=== PATIENT | female | born 1945 | race Hispanic/Latino ===

== ENCOUNTER 2017-01-05 19:45 | Emergency (ER) | payer MEDICARE ==
[2017-01-05 20:39] LABS: ALT (SGPT) 24 U/L (8-55); AST (SGOT) 25 U/L (5-34); Albumin 3.6 g/dL (3.4-4.8); Alkaline Phosphatase 69 U/L (40-150); Anion Gap 15 mmol/L (10-20); BUN (Urea Nitrogen) 19 mg/dL (9.8-20.1); CK (CPK) 112 U/L (29-168); Calc. Creatinine Clearance 0 mL/min (70-130); Carbon Dioxide 22 mmol/L (23-31); Chloride 102 mmol/L (98-107); Estimated GFR-MDRD 52; Globulin 3.8 g/dL (2.4-3.5); Glucose 215 mg/dL (80-115); Potassium 3.9 mmol/L (3.5-5.1); Protein, Total 7.4 g/dL (6.0-8.3); Sodium 135 mmol/L (136-145)
--- NOTE | 2017-01-05 21:03 | RAD ---
THREE VIEWS LEFT WRIST 01/05/17 HISTORY: Fall with injury last night to left wrist. AP, lateral and oblique views left wrist is obtained. Images demonstrate an area of radiolucency in the distal articulating surface of the distal left rad ius. The lucency is compatible with a fracture extends into the radiocarpal joint. Some osteoarthritic changes seen in the articulation of the trapezium and first metacarpal. The scaphoid appears to be intact without evidence of acute abnormalities. IMPRESSION: Intra-articular distal radial fracture. POS: [facility]
--- NOTE | 2017-01-05 21:04 | RAD ---
TWO VIEWS OF THE LEFT HIP 01/05/17 HISTORY: Fall last night with left hip pain. AP and frogleg views left hip is obtained. No evidence of left hip fractures, subluxations or bony lesions seen. IMPRESSION: Normal two views left hip. POS: [facility]
[2017-01-05] MEDS ORDERED: Acetaminophen/Codeine 30-300mg Tablet ONE (21:17)
[2017-01-05] MEDS ORDERED: Bacitracin Zinc 1 Packet ONE (21:18)
== END 2017-01-05 21:30 | disposition home or self-care (01) ==
LOC: NAV ERS 19:45
DX: S52.532A Colles' fracture of left radius, initial encounter for closed fracture (principal); S91.011A Laceration without foreign body, right ankle, initial encounter; E03.9 Hypothyroidism, unspecified; I25.2 Old myocardial infarction; I11.0 Hypertensive heart disease with heart failure; I50.9 Heart failure, unspecified; E78.5 Hyperlipidemia, unspecified; Z87.442 Personal history of urinary calculi; F41.9 Anxiety disorder, unspecified; F32.9 Major depressive disorder, single episode, unspecified; Z79.899 Other long term (current) drug therapy; W01.0XXA Fall on same level from slipping, tripping and stumbling without subsequent striking against object, initial encounter
CPT/HCPCS: 29125; 36415; 80053; 82550

== ENCOUNTER 2018-02-06 13:33 | Emergency (ER) | payer MEDICARE ==
[2018-02-06] MEDS ORDERED: Furosemide 40 MG/4 ML VIAL ONE (14:37)
[2018-02-06] MEDS ORDERED: hydrALAZINE 20 MG/ML VIAL ONE (14:37)
[2018-02-06 15:16] LABS: #Basophils 0.1 thou/uL (0.0-0.2); #Eosinphils 0.2 thou/uL (0.0-0.7); #Lymphocytes 2.7 thou/uL (1.20-3.40); #Monocytes 0.7 thou/uL (0.11-0.59); #Neutrophils 3.6 thou/uL (1.40-6.50); %Basophils 1.4 % (0.0-1.0); %Eosinophils 2.4 % (0.0-10.0); %Lymphocytes 37.1 % (21.0-51.0); %Monocytes 9.9 % (0.0-10.0); %Neutrophils 49.2 % (42.0-75.0); Hemoglobin 12.2 g/dL (12.0-16.0); Mean Corpuscular HGB CONC 31.9 g/dL (32.0-36.0); Mean Corpuscular Hemoglobin 29.4 pg (27.0-31.0); Mean Corpuscular Volume 92.1 fL (78.0-98.0); Mean Platelet Volume 6.5 fL (7.4-10.4); Platelet Count 311 thou/uL (130-400); RBC Distribution Width 12.3 % (11.5-14.5); Red Blood Cell (RBC) Count 4.14 mill/uL (4.20-5.40); White Blood Cell (WBC) Count 7.2 thou/uL (4.8-10.8)
[2018-02-06 15:33] LABS: ALT (SGPT) 31 U/L (8-55); AST (SGOT) 37 U/L (5-34); Albumin 3.6 g/dL (3.4-4.8); Alkaline Phosphatase 72 U/L (40-150); Anion Gap 15 mmol/L (10-20); BUN (Urea Nitrogen) 10 mg/dL (9.8-20.1); Bilirubin, Total 0.6 mg/dL (0.2-1.2); CK (CPK) 29 U/L (29-168); Calc. Creatinine Clearance 0 mL/min (70-130); Calcium 9.4 mg/dL (7.8-10.44); Carbon Dioxide 23 mmol/L (23-31); Chloride 102 mmol/L (98-107); Estimated GFR-MDRD 69; Globulin 3.8 g/dL (2.4-3.5); Glucose 217 mg/dL (83-110); Potassium 3.6 mmol/L (3.5-5.1); Protein, Total 7.4 g/dL (6.0-8.3); Sodium 136 mmol/L (136-145)
[2018-02-06 15:35] LABS: CKMB 0.9 ng/mL (0-6.6); Troponin I Less than 0.010 ng/mL (< 0.028)
[2018-02-06] MEDS ORDERED: cloNIDine 0.2 MG TAB ONE (15:48)
[2018-02-06] MEDS ORDERED: Ondansetron HCl/PF 4 MG/2 ML Vial ONE (15:55)
[2018-02-06] MEDS ORDERED: Acetaminophen 500 MG TAB ONE (15:55)
== END 2018-02-06 18:50 | disposition home or self-care (01) ==
LOC: NAV ERS 13:33
DX: I11.0 Hypertensive heart disease with heart failure (principal); I50.9 Heart failure, unspecified; R51 Headache; E03.9 Hypothyroidism, unspecified; I25.2 Old myocardial infarction; J44.9 Chronic obstructive pulmonary disease, unspecified; F41.9 Anxiety disorder, unspecified; F32.9 Major depressive disorder, single episode, unspecified; Z79.899 Other long term (current) drug therapy
CPT/HCPCS: 80053; 82553; 84484; 85025; 93005; 96361; 96374; 96375; J0360; J1940; J2405

== ENCOUNTER 2018-04-04 12:39 | Emergency (ER) | payer MEDICARE ==
[2018-04-04] MEDS ORDERED: Ondansetron PF 4 MG/2 ML Vial ONE (13:06)
[2018-04-04] MEDS ORDERED: Nitroglycerin 2% Ointment 1 INCH/1 GM Packet ONE (13:06)
[2018-04-04 14:00] LABS: #Basophils 0.1 thou/uL (0.0-0.2); #Eosinphils 0.1 thou/uL (0.0-0.7); #Lymphocytes 2.2 thou/uL (1.20-3.40); #Monocytes 0.5 thou/uL (0.11-0.59); #Neutrophils 2.9 thou/uL (1.40-6.50); %Eosinophils 2.4 % (0.0-10.0); %Neutrophils 49.7 % (42.0-75.0); Hemoglobin 11.8 g/dL (12.0-16.0); Mean Corpuscular HGB CONC 32.8 g/dL (32.0-36.0); Mean Corpuscular Hemoglobin 31.5 pg (27.0-31.0); Mean Corpuscular Volume 95.8 fL (78.0-98.0); Mean Platelet Volume 5.9 fL (7.4-10.4); Platelet Count 315 thou/uL (130-400); RBC Distribution Width 12.4 % (11.5-14.5); Red Blood Cell (RBC) Count 3.74 mill/uL (4.20-5.40); White Blood Cell (WBC) Count 5.8 thou/uL (4.8-10.8)
[2018-04-04 14:16] LABS: ALT (SGPT) 47 U/L (8-55); AST (SGOT) 60 U/L (5-34); Albumin 3.5 g/dL (3.4-4.8); Alkaline Phosphatase 66 U/L (40-150); Anion Gap 15 mmol/L (10-20); BUN (Urea Nitrogen) 11 mg/dL (9.8-20.1); Bilirubin, Total 0.7 mg/dL (0.2-1.2); CK (CPK) 33 U/L (29-168); Calc. Creatinine Clearance 0 mL/min (70-130); Carbon Dioxide 23 mmol/L (23-31); Chloride 100 mmol/L (98-107); Estimated GFR-MDRD 58; Globulin 3.9 g/dL (2.4-3.5); Glucose 182 mg/dL (83-110); Lipase 22 U/L (8-78); Potassium 3.7 mmol/L (3.5-5.1); Protein, Total 7.4 g/dL (6.0-8.3); Sodium 134 mmol/L (136-145)
[2018-04-04 14:17] LABS: CKMB 0.9 ng/mL (0-6.6); Troponin I Less than 0.010 ng/mL (< 0.028)
--- NOTE | 2018-04-04 15:01 | RAD ---
SINGLE VIEW CHEST: Date: 04/04/18 COMPARISON: 11/24/17. HISTORY: Chest pain. FINDINGS: Single view of the chest shows a normal sized cardiomediastinal silhouette. There is no evidence of c onsolidation, mass, or pleural effusion. The bones are unremarkable. IMPRESSION: No evidence of acute cardiopulmonary disease. POS: [facility]
[2018-04-04] MEDS ORDERED: Acetaminophen 500 MG TAB ONE (15:36)
== END 2018-04-04 18:25 | disposition short-term general hospital (02) ==
LOC: NAV ERS 12:39
DX: R07.9 Chest pain, unspecified (principal); I10 Essential (primary) hypertension; E03.9 Hypothyroidism, unspecified; J44.9 Chronic obstructive pulmonary disease, unspecified; Z79.899 Other long term (current) drug therapy; Z79.891 Long term (current) use of opiate analgesic; Z79.82 Long term (current) use of aspirin
CPT/HCPCS: 71045; 80053; 82550; 82553; 83690; 84484; 85025; 85379; 93005; 96374; 96375; J2270; J2405

== ENCOUNTER 2018-06-05 11:31 | Emergency (ER) | payer MEDICARE ==
[2018-06-05] MEDS ORDERED: Ondansetron ODT 4 MG TAB ONE (12:01)
[2018-06-05 12:25] LABS: #Basophils 0.1 thou/uL (0.0-0.2); #Eosinphils 0.2 thou/uL (0.0-0.7); #Lymphocytes 2.5 thou/uL (1.20-3.40); #Monocytes 0.5 thou/uL (0.11-0.59); #Neutrophils 2.4 thou/uL (1.40-6.50); %Basophils 1.9 % (0.0-1.0); %Eosinophils 3.6 % (0.0-10.0); %Lymphocytes 44.2 % (21.0-51.0); %Monocytes 8.4 % (0.0-10.0); %Neutrophils 41.9 % (42.0-75.0); Mean Corpuscular HGB CONC 32.7 g/dL (32.0-36.0); Mean Corpuscular Hemoglobin 32.1 pg (27.0-31.0); Mean Corpuscular Volume 98.3 fL (78.0-98.0); Mean Platelet Volume 5.9 fL (7.4-10.4); Platelet Count 305 thou/uL (130-400); RBC Distribution Width 12.8 % (11.5-14.5); Red Blood Cell (RBC) Count 3.74 mill/uL (4.20-5.40); White Blood Cell (WBC) Count 5.7 thou/uL (4.8-10.8)
[2018-06-05 12:46] LABS: ALT (SGPT) 42 U/L (8-55); AST (SGOT) 41 U/L (5-34); Albumin 3.7 g/dL (3.4-4.8); Alkaline Phosphatase 81 U/L (40-150); Anion Gap 14 mmol/L (10-20); BUN (Urea Nitrogen) 20 mg/dL (9.8-20.1); Bilirubin, Total 0.7 mg/dL (0.2-1.2); Calc. Creatinine Clearance 0 mL/min (70-130); Carbon Dioxide 23 mmol/L (23-31); Chloride 99 mmol/L (98-107); Estimated GFR-MDRD 30; Globulin 4.1 g/dL (2.4-3.5); Glucose 164 mg/dL (83-110); Lipase 16 U/L (8-78); Potassium 3.8 mmol/L (3.5-5.1); Protein, Total 7.8 g/dL (6.0-8.3); Sodium 132 mmol/L (136-145)
--- NOTE | 2018-06-05 13:17 | RAD ---
CHEST TWO VIEWS: HISTORY: Pain. COMPARISON: 04/21/2018 and 04/04/2018 FINDINGS: Normal cardiac silhouette. The pulmonary vessels and hilum are within normal limits. The costophren ic angles are clear. On the lateral projection, there is increased density, likely in the retrocardi ac region. No pneumothorax or osseous abnormalities. Note is made of a coronary artery stent. IMPRESSION: Retrocardiac opacity. Correlate for left lower lobe infiltrate. POS: [facility]
[2018-06-05] MEDS ORDERED: Sodium Chloride 0.9% 1,000 ML ONE (13:22)
[2018-06-05 13:41] LABS: Bilirubin Negative (Negative); Blood, Urine Negative (Negative); Clarity Clear (Clear); Glucose, Urine (Dipstick) Negative (Negative); Leukocyte Small (Negative); Nitrite Negative (Negative); Protein, Urine (Dipstick) Negative (Neg-Trace); Urobilinogen 0.2 mg/dL (0.2-1.0); pH, Urine 5.5 (5.0-9.0)
[2018-06-05 13:52] LABS: Bacteria/HPF 1+ HPF (None Seen); RBC/HPF 0-3 HPF (0-3); Squamous Epithelial 0-3 HPF (0-3); WBC/HPF 0-3 HPF (0-3)
--- NOTE | 2018-06-05 14:14 | CT ---
CT ABDOMEN AND PELVIS WITHOUT CONTRAST: Date: 06/05/18 PROVIDED CLINICAL HISTORY: Abdominal pain and nausea. FINDINGS: Comparison with 11/24/17. The visualized lung bases are free of significant opacity. The solid abdominal organs are suboptimally evaluated in the absence of IV contrast material, but dem onstrate no significant abnormality. No evidence for urinary tract calculi or hydronephrosis. No bowel dilatation, inflammatory fat stranding, free fluid, or free air apparent. Cholecystectomy cl ips are seen in the gallbladder fossa. Appendix appears unremarkable, with the exception of material of increased density within its lumen. Vascular calcifications are noted involving the abdominal aort a. Small, fat-containing umbilical hernia. The osseous structures demonstrate no concerning lytic or blastic lesions. Lumbar spine degenerative changes are present. IMPRESSION: No evidence for urinary tract calculi or hydronephrosis. POS: [facility]
== END 2018-06-05 15:20 | disposition short-term general hospital (02) ==
LOC: NAV ERS 11:31
DX: R07.89 Other chest pain (principal); N17.9 Acute kidney failure, unspecified; E03.9 Hypothyroidism, unspecified; I11.0 Hypertensive heart disease with heart failure; I50.9 Heart failure, unspecified; J44.9 Chronic obstructive pulmonary disease, unspecified; F41.9 Anxiety disorder, unspecified; F32.9 Major depressive disorder, single episode, unspecified; Z87.891 Personal history of nicotine dependence; I25.2 Old myocardial infarction; A41.9 Sepsis, unspecified organism; Z79.899 Other long term (current) drug therapy; Z79.82 Long term (current) use of aspirin
CPT/HCPCS: 36415; 71046; 74176; 80053; 81003; 81015; 83690; 83880; 84484; 85025; 93005; 94760; 96360; 96361; J7050; Q0162

== ENCOUNTER 2018-07-16 13:50 | Outpatient (CLI) | payer MEDICARE ==
--- NOTE | 2018-07-16 15:32 | RAD ---
SI JOINTS THREE VIEWS: 07/16/18 HISTORY: SI joint pain bilaterally for more than one month. There are arthrosis and degenerative changes of both SI joints with some minimal sclerosis but no hilary dence for significant ankylosis or periarticular bony erosive or destructive changes. No evidence for sacral fracture. No focal bone lesion. 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 No other acute process. POS: [facility]
== END 2018-07-16 13:51 | disposition home or self-care (01) ==
LOC: NAV RAD 13:50
PROVIDERS: ATTEND Internal Medicine
DX: M54.5 Low back pain (principal); M53.3 Sacrococcygeal disorders, not elsewhere classified
CPT/HCPCS: 72202

== ENCOUNTER 2018-10-22 13:01 | Outpatient (CLI) | payer MEDICARE ==
--- NOTE | 2018-10-22 13:44 | ULT ---
US Renal Bilateral STANDARD: 10/22/2018 1:18 PM CLINICAL HISTORY: Chronic kidney disease. STUDY: Renal ultrasound COMPARISON: None. FINDINGS: Right kidney: Echogenicity: Normal. Masses/cysts: None. Hydronephrosis: None. Calcifications: None. Length: 10.0 cm Left kidney: Echogenicity: Normal. Masses/cysts: None. Hydronephrosis: None. Calcifications: None. Length: 10.5 cm Limited visualization of the urinary bladder is unremarkable. IMPRESSION: Unremarkable renal ultrasound
== END 2018-10-22 13:02 | disposition home or self-care (01) ==
LOC: NAV ULT 13:01
PROVIDERS: ATTEND Internal Medicine Nephrology
DX: N18.3 Chronic kidney disease, stage 3 (moderate) (principal)
CPT/HCPCS: 76770